=== PATIENT | female | born 1990 | race African-American/Black ===

== ENCOUNTER 2022-05-24 21:38 | Observation (INO) | payer MEDICAID ==
[~2022-05-24] VITALS: Ht 165.1 cm; Wt 77.1 kg
[2022-05-24] MEDS ORDERED: LACTATED RINGERS 1,000 ML IV STA (23:07)
[2022-05-24] MEDS ORDERED: TERBUTALINE SULFATE 1MG/ML VIAL SUBCUT ONE (23:15)
[2022-05-25] MEDS ORDERED: RHO(D) IMMUNE GLOBULIN 300 MCG/SYR IM ONE (00:15)
[2022-05-25] MEDS ORDERED: PREN1TAB78 PO (00:21)
[2022-05-25] MEDS ORDERED: FERR325T6 PO (00:21)
[2022-05-25] MEDS: LACTATED RINGERS 1,000 ML IV SCH ×2 (00:58→07:48)
[2022-05-25 01:15] LABS: BASOPHILS % 0.1 % (0.0-2.0); EOSINOPHILS % 0.5 % (0.0-5.0); HEMATOCRIT. 32.2 % (36.0-48.0); HEMOGLOBIN. 10.8 g/dL (12.0-16.0); LYMPHOCYTES % 32.6 % (20.0-50.0); MEAN CORPUSCULAR HEMOGLOBIN 27.5 pg (28.0-32.0); MEAN CORPUSCULAR VOLUME 81.8 fL (81.0-99.0); MONOCYTES % 6.8 % (2.0-8.0); PLATELET 329 x1000/uL (130-400); RED BLOOD CELL COUNT 3.94 mill/uL (4.2-5.4); RED CELL DISTRIBUTION WIDTH 15.2 % (11.6-14.6)
[2022-05-25 01:24] LABS: CHLORIDE 107 mEq/L (98-107)
[2022-05-25] MEDS ORDERED: TERBUTALINE SULFATE 1MG/ML VIAL SUBCUT ONE (01:45)
[2022-05-25 01:49] LABS: CLARITY URINE TURBID (CLEAR); COLOR URINE RED (YELLOW); KETONES URINE NEGATIVE (NEGATIVE); LEUKOCYTE ESTERASE URINE 1+ (NEGATIVE); NITRITE URINE NEGATIVE (NEGATIVE); OCCULT BLOOD URINE 3+ (NEGATIVE); PROTEIN URINE 2+ (NEGATIVE); SPECIFIC GRAVITY URINE 1.006 (1.005-1.030)
[2022-05-25 02:08] LABS: *AMPHETAMINES SCREEN URINE NEGATIVE (NEGATIVE); *BARBITURATES SCREEN URINE NEGATIVE (NEGATIVE); *BENZODIAZEPINES SCREEN URINE NEGATIVE (NEGATIVE); *COCAINE SCREEN URINE NEGATIVE (NEGATIVE); CANNABINOID URINE SCREEN NEGATIVE (NEGATIVE); METHADONE URINE SCREEN NEGATIVE (NEGATIVE); OPIATES URINE SCREEN NEGATIVE (NEGATIVE); PHENCYCLIDINE URINE SCREEN NEGATIVE (NEGATIVE)
[2022-05-25 02:09] LABS: HEPATITIS B SURFACE ANTIGEN NEGATIVE
[2022-05-25 02:25] LABS: INR 0.9; PARTIAL THROMBOPLASTIN TIME 26.6 sec (23.4-31.0); PROTHROMBIN TIME 9.8 sec (9.6-11.0)
[2022-05-28 04:07] LABS: HIV SCREEN 4G Non Reactive (Non Reactive)
[2022-05-28] MEDS ORDERED: IBUP-2030 MT (10:13)
== END 2022-05-25 11:15 | disposition home or self-care (01) ==
LOC: OBSVTOIN 21:38 → INTOOBSV 21:38 → 8 EST LDRP 21:38 → EDBD 21:38
PROVIDERS: ADMIT Specialist; ATTEND Specialist
DX: O62.9 Abnormality of forces of labor, unspecified (principal); Z20.822 Contact with and (suspected) exposure to COVID-19; Z3A.38 38 weeks gestation of pregnancy; Z79.899 Other long term (current) drug therapy
CPT/HCPCS: 36415; 59025; 76805; 76818; 80053; 80305; 81003; 84550; 85025; 85384; 85610; 85730; 86592; 86762; 87340; 87389; 87426; 96360; 96361; 96372; G0378; G0379; J3105; 99281; J7120; A4315